=== PATIENT | male | born 1945 | race Caucasian/White ===

== ENCOUNTER 2016-09-22 21:26 | Emergency (ER) | payer OTHER, MEDICAID ==
[~2016-09-22] VITALS: Ht 172.7 cm; Wt 97.6 kg
[2016-09-22 21:35] VITALS: BP 144/73; PULSE 76; RESP 18; TEMP 98; O2SAT 100
[2016-09-22 22:42] VITALS: BP 152/89; PULSE 82; RESP 18; O2SAT 98
[2016-09-22] MEDS ORDERED: LOSA50TA PO (22:42)
[2016-09-22] MEDS ORDERED: MOBI15TA PO (22:42)
[2016-09-22] MEDS ORDERED: SIMV20TA PO (22:42)
[2016-09-22] MEDS ORDERED: TAMS0.4C4 PO (22:42)
[2016-09-22] MEDS ORDERED: GABA100C4 PO (22:42)
[2016-09-22] MEDS ORDERED: METO50TA PO (22:42)
[2016-09-22] MEDS ORDERED: LANTINJ SQ (22:42)
[2016-09-22] MEDS ORDERED: AMLO10TA2 PO (22:42)
[2016-09-22] MEDS ORDERED: ALAV10TA10 PO (22:42)
[2016-09-22] MEDS ORDERED: JANU50TA8 PO (22:42)
[2016-09-22] MEDS ORDERED: ASPI1TAB69 PO (22:42)
[2016-09-22] MEDS ORDERED: ZANTTAB PO (22:42)
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
[2016-09-23 00:11] VITALS: BP 154/76; PULSE 84; RESP 18; O2SAT 98
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
[2016-09-23] MEDS ORDERED: PERC5TAB12 PO (00:29)
[2016-09-23] MEDS ORDERED: oxyCODONE/ACETAMINOPHEN 7.5 MG/325 MG TAB PO ONE (00:30)
== END 2016-09-23 00:42 | disposition home or self-care (01) ==
LOC: PHED 21:26
DX: S16.1XXA Strain of muscle, fascia and tendon at neck level, initial encounter (principal); E11.9 Type 2 diabetes mellitus without complications; I10 Essential (primary) hypertension; E78.00 Pure hypercholesterolemia, unspecified; Z79.4 Long term (current) use of insulin; V49.9XXA Car occupant (driver) (passenger) injured in unspecified traffic accident, initial encounter; Y93.9 Activity, unspecified; Y92.410 Unspecified street and highway as the place of occurrence of the external cause
CPT/HCPCS: 72125; 73010